=== PATIENT | female | born 1985 | race Caucasian/White ===

== ENCOUNTER → 2016-07-28 | Outpatient (CLI) | payer OTHER | END | disposition home or self-care (01) | LOC: LAB.O 20:38 | PROVIDERS: ATTEND Nurse Practitioner Family | DX: M25.552 Pain in left hip (principal); M54.6 Pain in thoracic spine ==

== ENCOUNTER → 2016-09-10 | Outpatient (CLI) | payer OTHER | END | disposition home or self-care (01) | LOC: LAB.O 20:37 | PROVIDERS: ATTEND Nurse Practitioner Family | DX: R53.83 Other fatigue (principal) ==

== ENCOUNTER 2017-11-01 02:43 | Emergency (ER) | payer OTHER ==
[2017-11-01 02:50] VITALS: BP 109/77; TEMP 98.9; O2SAT 100
--- NOTE | 2017-11-01 02:54 | ED.PDOC ---
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 Timing/Duration: week, getting worse Cough Quality/Degree: mild Possible Cause: occasional episodes, unknown cause Improving Factors: nothing Worsening Factors: nothing Associated Symptoms: other - see hpi Respiratory Risk Factors: no cause identified Home Medications: Ambulatory Orders Djgutszvge-Wxirxxlafozco-Kwecc [Fioricet] 1 cap PO PRN 11/01/17 Cefuroxime Axetil [Ceftin] 500 mg PO Q12H 7 Days #14 tablet 11/01/17 Cyclobenzaprine HCl [Flexeril] 10 mg PO PRN 11/01/17 Topiramate [Topamax] 100 mg PO BEDTIME 11/01/17 Tramadol HCl 50 mg PO PRN 11/01/17 predniSONE 10 mg PO BID 5 Days #10 tab 11/01/17 Review of Systems - Review of Systems Constitutional: States: no symptoms reported EENTM: States: see HPI Respiratory: States: see HPI Cardiology: States: no symptoms reported Gastrointestinal/Abdominal: States: no symptoms reported Genitourinary: States: no symptoms reported Musculoskeletal: States: no symptoms reported Skin: States: no symptoms reported Neurological: States: no symptoms reported Past Medical History (General) - Patient Medical History Hx Seizures: No Hx Asthma: No Hx Hypertension: No Surgical History: no surgical history - Vaccination History Immunizations Up to Date: Yes - Social History Hx Alcohol Use: No Hx Substance Use: No Hx Physical Abuse: No Hx Emotional Abuse: No - Female History Patient is a Female of Child Bearing Age (10 -59 yrs old): Yes Hx Last Menstrual Period: 10/26/17 Patient : No Family Medical History - Family History Father Family History: Unknown Mother Living Status: Hx Family Hypertension: Yes Physical Exam - Physical Exam General Appearance: Alert, Comfortable, No apparent distress Eye Exam: bilateral normal ENT Exam: normal ENT inspection, hearing grossly normal, nasal congestion, nasal drainage, other - tender frontal/maxillary sinus area Neck: non-tender, supple Respiratory: chest non-tender, lungs clear, normal breath sounds, no respiratory distress Cardiovascular/Chest: normal peripheral pulses, regular rate, rhythm, no murmur Gastrointestinal/Abdominal: normal bowel sounds, non tender, soft Neurologic: alert, oriented x 3 Skin Exam: normal color, warm/dry Progress - Progress Progress: 11/01/17 02:57 Vital Signs - 8 hr 11/01/17 02:49 Temperature 98.9 F Pulse Rate [ 100 H right] Respiratory 18 Rate Blood Pressure 109/77 [left] O2 Sat by Pulse 100 Oximetry Departure - Departure Clinical Impression: Sinusitis, acute Qualifiers: Sinusitis location: unspecified location Recurrence: not specified as recurrent Qualified Code(s): J01.90 - Acute sinusitis, unspecified Time of Disposition: 03:00 Disposition: Discharge to Home or Self Care Condition: Fair Departure Forms: ED Discharge - Pt. Copy, Patient Portal Self Enrollment Referrals: Angela Page, [facility] [Primary Care Provider] - 1-2 Weeks Prescriptions: Cefuroxime Axetil [Ceftin] 500 mg PO Q12H 7 Days #14 tablet predniSONE 10 mg PO BID 5 Days #10 tab Home Medications: Ambulatory Orders Glzasdemek-Pjmbcmyjixkpl-Uiuzz [Fioricet] 1 cap PO PRN 11/01/17 Cefuroxime Axetil [Ceftin] 500 mg PO Q12H 7 Days #14 tablet 11/01/17 Cyclobenzaprine HCl [Flexeril] 10 mg PO PRN 11/01/17 Topiramate [Topamax] 100 mg PO BEDTIME 11/01/17 Tramadol HCl 50 mg PO PRN 11/01/17 predniSONE 10 mg PO BID 5 Days #10 tab 11/01/17 Additional Instructions: continue with Afrin nose spray 2 sprays each nostril am/pm 3 days on 3 days off for nasal congestion as needed;continue with flonase as directed
[2017-11-01] MEDS ORDERED: cefTRIAXone SODIUM 1 GM VIAL IM ONE (02:58)
[2017-11-01] MEDS ORDERED: KETOROLAC TROMETHAMINE INJ 30 MG/ML VIAL IM ONE (02:58)
[2017-11-01] MEDS ORDERED: predniSONE 20 MG TAB PO ONE (02:58)
[2017-11-01] MEDS ORDERED: OXYMETAZOLINE NASAL SPRAY 15 ML BTTL BNAS PRN (02:59)
== END 2017-11-01 03:30 | disposition home or self-care (01) ==
LOC: ER 02:43
DX: J01.90 Acute sinusitis, unspecified (principal)

== ENCOUNTER → 2018-02-01 | Outpatient (CLI) | payer OTHER | LOC: YCFC.O 19:48 | PROVIDERS: ATTEND Nurse Practitioner Family | DX: Z00.00 Encounter for general adult medical examination without abnormal findings (principal); J32.9 Chronic sinusitis, unspecified; M54.5 Low back pain ==

== ENCOUNTER → 2018-02-02 | Outpatient (CLI) | payer OTHER ==
--- NOTE | 2018-02-02 14:19 | MRI ---
EXAM DESCRIPTION: Thoracic Spine w/o Contrast: Magnetic Resonance Imaging. CLINICAL HISTORY: thoracic back pain COMPARISON: MRI scan thoracic 06/04/2010. MRI scan lumbar spine today. TECHNIQUE: Multiplanar, multiple standard sequences, non contrast MRI, thoracic spine. Axial images T9-10 disc space down to the T12-L1 disc space. FINDINGS: Minimal disc space loss at T10-11 and T11-12 with tiny posterior midline disc bulges. No herniation. No canal or foraminal stenosis. Remaining discs demonstrate normal signal. Disc spaces are preserved. Canal and foramina are patent. No scoliosis. Facet joints are unremarkable. Conus terminates at L1-L2. Cord with normal signal. No compression. Paravertebral soft tissues are unremarkable. Normal marrow signal in the remaining vertebral bodies and the posterior elements. Vertebral bodies are not compressed at any level. IMPRESSION: Minimal desiccation in the T10-11 disc and T11-12 disc and minimal disc space loss. No significant bulging. Canal and foramina are patent. Remainder of the study is unremarkable. Electronically signed by: Jaylan Hayes MD 02/02/2018 2:18 PM [facility]
--- NOTE | 2018-02-02 14:35 | MRI ---
EXAM DESCRIPTION: Lumbar Spine w/o Contrast : Magnetic Resonance Imaging. CLINICAL HISTORY: LOW Back pain. Upper back pain. Left leg pain. Back surgery 5 years ago. COMPARISON: MRI scan thoracic spine on this visit. MRI scan lumbar spine 06/04/2010. TECHNIQUE: Multiplanar, multiple standard sequences, non contrast MRI, lumbar spine. FINDINGS: L5-S1: Normal signal in the disc with disc space preserved. Posterior elements unremarkable. Canal and foramina are patent. L4-5: Normal signal in the disc with disc space preserved. Posterior elements are unremarkable. Canal and foramina are patent. L3-4: Normal signal in the disc with disc space preserved. Tiny posterior midline bulge. Minimal flavum ligament hypertrophy. Mild canal narrowing. Facets are negative. Foramina are patent. L2-3: Normal signal in the disc with disc space preserved. Tiny posterior midline bulge. Posterior elements unremarkable. Canal and foramina are patent. L1-2: Normal signal in the disc with disc space preserved. Posterior elements unremarkable. Canal and foramina are patent. T12-L1: Normal signal in the disc with disc space preserved. Posterior elements unremarkable. Canal and foramina are patent. Conus terminates at L1. Anatomic curvature and alignment of the spine. Paravertebral soft tissues negative.. Normal marrow signal in the remaining vertebral bodies and the posterior elements. Vertebral bodies are not compressed at any level. IMPRESSION: 1. Tiny posterior midline bulge L3-4 with minimal flavum ligament hypertrophy. Mild canal narrowing. No canal or foraminal stenosis. Slight progression since the prior study. 2. Tiny posterior midline bulge L2-3 disc. Canal and foramina are patent. Slight progression since the prior study. Electronically signed by: Jaylan Hayes MD 02/02/2018 2:34 PM [facility]
--- NOTE | 2018-02-02 14:55 | CT ---
CLINICAL HISTORY: 32 years Female, SINUSITIS COMPARISON: MR scans of the thoracic and lumbar spines on this visit without gadolinium IV contrast. TECHNIQUE: Spiral, axial 2.5 x 2.5 mm scans through the maxillofacial bones without contrast. Coronal and sagittal 2.0 mm reconstructions. Axial, helical 2.5 mm reconstruction using bone algorithm. Total Exam DLP: 244.87 mGy-cm. This exam was performed according to our departmental CT dose-optimization program which includes automated exposure control, adjustment of the mA and/or kV according to patient size and/or use of iterative reconstruction technique; to reduce radiation dose to as low as reasonably achievable (ALARA). FINDINGS: No significant mucoperiosteal thickening in the paranasal sinuses. No air-fluid levels. Bilateral ostiomeatal units are patent. Nasal passageways are symmetric. Mid septum with slight left deviation no deviation anterior. Bilateral nasal bones and anterior maxillary spine are unremarkable. Included mastoid air cells normally aerated. Included airway is unremarkable. No effacement or displacement of the nasopharynx or oropharynx or hypopharynx. Included peripheral soft tissues or unremarkable. IMPRESSION: No significant chronic sinusitis. No acute sinusitis. Airways are well aerated. Evaluation of soft tissues limited due to lack of IV contrast but no large soft tissue masses. 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
== END ==
LOC: MRI 08:35
PROVIDERS: ATTEND Nurse Practitioner Family
DX: J32.9 Chronic sinusitis, unspecified (principal); M51.84 Other intervertebral disc disorders, thoracic region; M51.86 Other intervertebral disc disorders, lumbar region; M54.5 Low back pain

== ENCOUNTER → 2018-04-12 | Outpatient (CLI) | payer BC | LOC: YCFC.O 16:20 | PROVIDERS: ATTEND Nurse Practitioner Family | DX: R50.9 Fever, unspecified (principal) ==